=== PATIENT | female | born 1930 | race Caucasian/White ===

== ENCOUNTER 2017-07-27 14:17 | Inpatient (IN) | payer MEDICARE, OTHER, MEDICAID ==
[2017-07-27] MEDS ORDERED: Sodium Chloride 0.9% 1,000 ML IV ONE ×2 (15:04→21:16)
[2017-07-27] MEDS ORDERED: Sodium Chloride 0.9% 250 ML IV ONE (15:04)
--- NOTE | 2017-07-27 15:50 | EDM.PDOC ---
ED HPI GENERAL MEDICAL PROBLEM - General Chief Complaint: Gastrointestinal Problem Stated Complaint: VOMITING AND NOT EATING OR DRINKING Time Seen by Provider: 07/27/17 14:50 Source of Information: Reports: Family, Group Home Records History Limitations: Reports: No Limitations - History of Present Illness INITIAL COMMENTS - FREE TEXT/NARRATIVE: 86-year-old female presents for evaluation and treatment of vomiting, weakness and lethargy. Patient is pleasantly confused and is unable to provide a reliable history. She currently denies any pain. Per halfway report she had 2 episodes of vomiting on 07-17, one episode of vomiting on 07-20 and 2 episodes of vomiting on 07-23. She was given Zofran around noon today. He also reports she has been more lethargic and weak. She has also not been eating drinking as much as normal. No fevers or diarrhea per halfway. Patient is a DNR. Patient is a resident of [facility]. Abdomen Pain Score (Numeric/FACES): 0 - Related Data Allergies Allergy/AdvReac Type Severity Reaction Status Date / Time shellfish derived Allergy Abdominal Verified 03/11/14 03:06 Cramps Home Meds: Home Meds Lisinopril 10 mg PO DAILY 03/06/14 [History] Simvastatin [Zocor] 20 mg PO DAILY 03/06/14 [History] Venlafaxine [Effexor XR] 112.5 mg PO DAILY 03/06/14 [History] metFORMIN [Glucophage] 1,000 mg PO DAILY 03/06/14 [History] Metoprolol Tartrate [Lopressor] 50 mg PO TID #90 tablet 03/11/14 [Rx] Acetaminophen [Tylenol] 650 mg PO BID 07/27/17 [History] Aspirin [Halfprin] 81 mg PO DAILY 07/27/17 [History] Insulin Glarg,Human.Rec.Analog [LantUS Solostar] 25 units SQ BEDTIME 07/27/17 [ History] QUEtiapine [SEROquel] 150 mg PO BID 07/27/17 [History] Sennosides/Docusate Sodium [Senna Plus Tablet] 2 tab PO DAILY 07/27/17 [History] Past Medical History Cardiovascular History: Reports: Hypertension, Pacemaker Gastrointestinal History: Reports: Chronic Constipation, GERD, Other (See Below) Other Gastrointestinal History: adult failure to thrive Musculoskeletal History: Reports: Osteoarthritis Psychiatric History: Reports: Depression Endocrine/Metabolic History: Reports: Diabetes, Type II - Past Surgical History GI Surgical History: Reports: Cholecystectomy Female Surgical History: Reports: Mastectomy Other Female Surgeries/Procedures: right Social & Family History - Tobacco Use Smoking Status *Q: Never Smoker - Caffeine Use Caffeine Use: Reports: None - Alcohol Use Days Per Week of Alcohol Use: 0 - Recreational Drug Use Recreational Drug Use: No ED ROS GENERAL - Review of Systems Review Of Systems: See Below Constitutional: Reports: Malaise, Weakness. Denies: Fever Cardiovascular: Denies: Chest Pain GI/Abdominal: Reports: Nausea, Vomiting. Denies: Abdominal Pain, Diarrhea ED EXAM, GI/ABD - Physical Exam Exam: See Below Exam Limited By: No Limitations General Appearance: Alert, WD/WN, No Apparent Distress, Obese Throat/Mouth: Normal Inspection, Normal Voice, No Airway Compromise Respiratory/Chest: No Respiratory Distress, Lungs Clear, Normal Breath Sounds Cardiovascular: Normal Peripheral Pulses, Regular Rate, Rhythm, No Murmur GI/Abdominal Exam: Normal Bowel Sounds, Soft, Non-Tender Neurological: Alert, Confused Psychiatric: Normal Affect, Normal Mood Skin Exam: Warm, Dry, Normal Color EKG INTERPRETATION EKG Date: 07/27/17 Time: 17:00 EKG Interpretation Comments: Paced rhythm at 63 bpm. No acute changes. Reviewed by myself and Dr. Su. Course - Vital Signs Last Recorded V/S: Last Vital Signs Temp 36.9 C 07/27/17 22:10 Pulse 71 07/27/17 22:10 Resp 19 07/27/17 22:10 BP 155/80 H 07/27/17 22:10 Pulse Ox 93 L 07/27/17 22:10 - Orders/Labs/Meds Orders: Active Orders 24 hr Category Date Time Status Cardiac Monitoring [RC] . DIRECTED Care 07/27/17 15:01 Active EKG Documentation Completion [RC] ASDIRECTED Care 07/27/17 15:02 Active Insert Gilliam Catheter [Insert Urinary Catheter] [OM.PC] Care 07/27/17 19:05 Ordered Stat Urinary Catheter Assessment [RC] ASDIRECTED Care 07/27/17 19:05 Active Chest 1V Frontal [CR] Stat Exams 07/27/17 15:01 Taken CULTURE BLOOD [BC] Stat Lab 07/27/17 19:33 Ordered CULTURE BLOOD [BC] Stat Lab 07/27/17 19:33 Ordered CULTURE URINE [RM] Stat Lab 07/27/17 19:05 Ordered Sodium Chloride 0.9% [Normal Saline] 1,000 ml Med 07/27/17 15:04 Active IV ONETIME Sodium Chloride 0.9% [Normal Saline] 1,000 ml Med 07/27/17 21:16 Active IV ONETIME Blood Culture x2 Reflex Set [OM.PC] Stat Oth 07/27/17 19:33 Ordered EKG 12 Lead [EK] Stat Ther 07/27/17 15:01 Ordered Medication Orders Acetaminophen (Tylenol) 650 mg PO Q6H PRN PRN Reason: Fever Sodium Chloride (Normal Saline) 1,000 mls @ 100 mls/hr IV ONETIME ONE Stop: 07/28/17 01:03 Last Admin: 07/27/17 19:37 Dose: 100 mls/hr Sodium Chloride (Normal Saline) 1,000 mls @ 100 mls/hr IV ONETIME ONE Stop: 07/28/17 07:15 Last Admin: 07/27/17 21:24 Dose: 100 mls/hr Sodium Chloride (Normal Saline) 1,000 mls @ 125 mls/hr IV ASDIRECTED [facility] Temazepam (Restoril) 7.5 mg PO BEDTIME PRN PRN Reason: Sleep Labs: Laboratory Tests 07/27/17 07/27/17 07/27/17 Range/Units 16:10 16:10 19:05 WBC 11.20 H (3.98-10.04) K/mm3 RBC 4.19 (3.98-5.22) M/mm3 Hgb 13.1 (11.2-15.7) gm/L Hct 40.6 (34.1-44.9) % MCV 96.9 H (79.4-94.8) fl MCH 31.3 (25.6-32.2) pg MCHC 32.3 (32.2-35.5) g/dl RDW Std Deviation 46.2 (36.4-46.3) fL Plt Count 266 (182-369) K/mm3 MPV 9.7 (9.4-12.3) fl Neutrophils % (Manual) 72 H (40-60) % Band Neutrophils % 0 (0-10) % Lymphocytes % (Manual) 16 L (20-40) % Atypical Lymphs % 0 % Monocytes % (Manual) 11 H (2-10) % Eosinophils % (Manual) 1 (0.7-5.8) % Basophils % (Manual) 0 L (0.1-1.2) Platelet Estimate Adequate Plt Morphology Comment Normal RBC Morph Comment Normal Sodium 136 (136-145) mEq/L Potassium 4.9 (3.5-5.1) mEq/L Chloride 101 (98-107) mEq/L Carbon Dioxide 26 (21-32) mEq/L Anion Gap 13.9 (5-15) BUN 54 H (7-18) mg/dL Creatinine 2.0 H (0.55-1.02) mg/dL Est Cr Clr Drug Dosing 15.52 mL/min Estimated GFR (MDRD) 24 (>60) mL/min BUN/Creatinine Ratio 27.0 H (14-18) Glucose 159 H (83-115) mg/dL Lactic Acid (0.4-2.0) mmol/L Calcium 9.2 (8.5-10.1) mg/dL Total Bilirubin 0.3 (0.2-1.0) mg/dL AST 13 L (15-37) U/L ALT 18 (14-59) U/L Alkaline Phosphatase 123 H (46-116) U/L Troponin I < 0.017 (0.00-0.056) ng/mL NT-Pro-B Natriuret Pep 1021 H (0-450) pg/mL Total Protein 6.4 (6.4-8.2) g/dl Albumin 2.8 L (3.4-5.0) g/dl Globulin 3.6 gm/dL Albumin/Globulin Ratio 0.8 L (1-2) Urine Color Yellow (Yellow) Urine Appearance Cloudy H (Clear) Urine pH 7.0 (5.0-8.0) Ur Specific [place] 1.025 (1.005-1.030) Urine Protein 2+ H (Negative) Urine Glucose (UA) Negative (Negative) Urine Ketones 1+ H (Negative) Urine Occult Blood Negative (Negative) Urine Nitrite Negative (Negative) Urine Bilirubin Negative (Negative) Urine Urobilinogen 1.0 (0.2-1.0) Ur Leukocyte Esterase 1+ H (Negative) Urine RBC 0-5 (0-5) /hpf Urine WBC 50-75 H (0-5) /hpf Ur Epithelial Cells 5-10 H (0-5) /hpf Urine Bacteria Many H (FEW) /hpf Urine Mucus Not seen (FEW) /hpf 07/27/17 Range/Units 20:25 WBC (3.98-10.04) K/mm3 RBC (3.98-5.22) M/mm3 Hgb (11.2-15.7) gm/L Hct (34.1-44.9) % MCV (79.4-94.8) fl MCH (25.6-32.2) pg MCHC (32.2-35.5) g/dl RDW Std Deviation (36.4-46.3) fL Plt Count (182-369) K/mm3 MPV (9.4-12.3) fl Neutrophils % (Manual) (40-60) % Band Neutrophils % (0-10) % Lymphocytes % (Manual) (20-40) % Atypical Lymphs % % Monocytes % (Manual) (2-10) % Eosinophils % (Manual) (0.7-5.8) % Basophils % (Manual) (0.1-1.2) Platelet Estimate Plt Morphology Comment RBC Morph Comment Sodium (136-145) mEq/L Potassium (3.5-5.1) mEq/L Chloride (98-107) mEq/L Carbon Dioxide (21-32) mEq/L Anion Gap (5-15) BUN (7-18) mg/dL Creatinine (0.55-1.02) mg/dL Est Cr Clr Drug Dosing mL/min Estimated GFR (MDRD) (>60) mL/min BUN/Creatinine Ratio (14-18) Glucose (83-115) mg/dL Lactic Acid 2.4 H (0.4-2.0) mmol/L Calcium (8.5-10.1) mg/dL Total Bilirubin (0.2-1.0) mg/dL AST (15-37) U/L ALT (14-59) U/L Alkaline Phosphatase (46-116) U/L Troponin I (0.00-0.056) ng/mL NT-Pro-B Natriuret Pep (0-450) pg/mL Total Protein (6.4-8.2) g/dl Albumin (3.4-5.0) g/dl Globulin gm/dL Albumin/Globulin Ratio (1-2) Urine Color (Yellow) Urine Appearance (Clear) Urine pH (5.0-8.0) Ur Specific [place] (1.005-1.030) Urine Protein (Negative) Urine Glucose (UA) (Negative) Urine Ketones (Negative) Urine Occult Blood (Negative) Urine Nitrite (Negative) Urine Bilirubin (Negative) Urine Urobilinogen (0.2-1.0) Ur Leukocyte Esterase (Negative) Urine RBC (0-5) /hpf Urine WBC (0-5) /hpf Ur Epithelial Cells (0-5) /hpf Urine Bacteria (FEW) /hpf Urine Mucus (FEW) /hpf Meds: Medications Generic Name Dose Route Start Last Admin Trade Name Freq PRN Reason Stop Dose Admin Acetaminophen 650 mg 07/28/17 00:03 Tylenol PO Q6H PRN Fever Sodium Chloride 1,000 mls @ 100 mls/hr 07/27/17 15:04 07/27/17 19:37 Normal Saline IV 07/28/17 01:03 100 mls/hr ONETIME ONE Administration Sodium Chloride 1,000 mls @ 100 mls/hr 07/27/17 21:16 07/27/17 21:24 Normal Saline IV 07/28/17 07:15 100 mls/hr ONETIME ONE Administration Sodium Chloride 1,000 mls @ 125 mls/hr 07/28/17 00:15 Normal Saline IV ASDIRECTED FATUMA Temazepam 7.5 mg 07/28/17 00:05 Restoril PO BEDTIME PRN Sleep Discontinued Medications Generic Name Dose Route Start Last Admin Trade Name Freq PRN Reason Stop Dose Admin Sodium Chloride 250 mls @ 250 mls/hr 07/27/17 15:04 07/27/17 19:26 Normal Saline IV 07/27/17 16:03 250 mls/hr ONETIME ONE Administration Ceftriaxone Sodium 1 gm/ 100 mls @ 200 mls/hr 07/27/17 19:33 07/27/17 19:37 Sodium Chloride IV 07/27/17 20:02 200 mls/hr ONETIME ONE Administration Sodium Chloride 500 mls @ 500 mls/hr 07/27/17 20:15 Normal Saline IV 07/27/17 21:14 ONETIME ONE Sodium Chloride 999 mls @ 999 mls/hr 07/27/17 20:16 07/27/17 20:20 Normal Saline IV 07/27/17 21:14 999 mls/hr ONETIME ONE Administration Ondansetron HCl 4 mg 07/27/17 19:31 07/27/17 19:37 Zofran IVPUSH 07/27/17 19:32 4 mg ONETIME ONE Administration - Radiology Interpretation Free Text/Narrative:: Chest: Portable view of the chest is obtained. Comparison: Prior chest x-ray of 03/06/14. Heart size and mediastinum are within normal limits for portable technique. Degenerative change is seen within both shoulders. Calcification off the inferior left shoulder is seen which is stable from prior exam possibly due to old injury. Pacemaker is noted. Lungs are clear. Impression: 1. Incidental findings. Nothing acute is appreciated on portable chest x-ray. Abdomen: Supine and decubitus views of the abdomen were obtained. Scattered gas within colon and small bowel is seen which appears within normal limits. Surgical clips are seen from prior cholecystectomy. Scoliosis and degenerative change is noted within the spine. Vascular calcification is seen. No free air is seen. Impression: 1. Incidental findings. - Re-Assessments/Exams Free Text/Narrative Re-Assessment/Exam: 07/28/17 00:08 Influenza is negative. Unfortunately, given multiple traumas in the ER tonight the patient's IV was occluded when she bent her arm frequently. She received only about 30 mls initially. When she went over to x-ray to have her flat and upright done she pulled out her IV. Nursing staff was unable to get IV access in her right foot. 1 L was then bolused and She was also given Rocephin. Patient has blood and urine cultures pending. The field the patient should be admitted for urinary tract infection with her worsening weakness, vomiting and lethargy. I spoke with the patient's son Luciano at [phone]. He also feels that she should be admitted and agrees to the admission. I spoke with hospice on-call, Dr. Lawson, she agrees to the admission. [facility] be [facility] Departure - Departure Time of Disposition: 00:12 Disposition: Refer to Observation Condition: Poor Clinical Impression: Vomiting, Urinary tract infection - Discharge Information - My Orders Last 24 Hours: My Active Orders 07/27/17 15:01 Cardiac Monitoring [RC] . DIRECTED Chest 1V Frontal [CR] Stat EKG 12 Lead [EK] Stat 07/27/17 15:02 EKG Documentation Completion [RC] ASDIRECTED 07/27/17 15:04 Sodium Chloride 0.9% [Normal Saline] 1,000 ml IV ONETIME 07/27/17 19:05 Insert Gilliam Catheter [Insert Urinary Catheter] [OM.PC] Stat Urinary Catheter Assessment [RC] ASDIRECTED CULTURE URINE [RM] Stat 07/27/17 19:33 CULTURE BLOOD [BC] Stat CULTURE BLOOD [BC] Stat Blood Culture x2 Reflex Set [OM.PC] Stat 07/27/17 21:16 Sodium Chloride 0.9% [Normal Saline] 1,000 ml IV ONETIME - Assessment/Plan Last 24 Hours: My Active Orders 07/27/17 15:01 Cardiac Monitoring [RC] . DIRECTED Chest 1V Frontal [CR] Stat EKG 12 Lead [EK] Stat 07/27/17 15:02 EKG Documentation Completion [RC] ASDIRECTED 07/27/17 15:04 Sodium Chloride 0.9% [Normal Saline] 1,000 ml IV ONETIME 07/27/17 19:05 Insert Gilliam Catheter [Insert Urinary Catheter] [OM.PC] Stat Urinary Catheter Assessment [RC] ASDIRECTED CULTURE URINE [RM] Stat 07/27/17 19:33 CULTURE BLOOD [BC] Stat CULTURE BLOOD [BC] Stat Blood Culture x2 Reflex Set [OM.PC] Stat 07/27/17 21:16 Sodium Chloride 0.9% [Normal Saline] 1,000 ml IV ONETIME
--- NOTE | 2017-07-27 18:56 | CR ---
Abdomen: Supine and decubitus views of the abdomen were obtained. Scattered gas within colon and small bowel is seen which appears within normal limits. Surgical clips are seen from prior cholecystectomy. Scoliosis and degenerative change is noted within the spine. Vascular calcification is seen. No free air is seen. Impression: 1. Incidental findings. Diagnostic code #2
[2017-07-27] MEDS ORDERED: Ondansetron 4 MG/2 ML SDV IVPUSH ONE (19:31)
[2017-07-27] MEDS ORDERED: cefTRIAXone 1 GM in Sodium Chloride 0.9% 100 ML IV ONE (19:33)
[2017-07-27] MEDS ORDERED: Sodium Chloride 0.9% 500 ML IV ONE (20:15)
[2017-07-27] MEDS ORDERED: SODIUM CHLORIDE 0.9% IV ONE (20:16)
[2017-07-28] MEDS ORDERED: Acetaminophen 325 MG Tab PO PRN (00:03)
[2017-07-28] MEDS ORDERED: Temazepam 7.5 MG Cap PO PRN (00:05)
[2017-07-28] MEDS ORDERED: Ondansetron 4 MG/2 ML SDV IVPUSH PRN (00:09)
[2017-07-28] MEDS: Sodium Chloride 0.9% 1,000 ML IV SCH ×2 (07:44→17:21)
--- NOTE | 2017-07-28 08:06 | CR ---
Chest: Portable view of the chest is obtained. Comparison: Prior chest x-ray of 03/06/14. Heart size and mediastinum are within normal limits for portable technique. Degenerative change is seen within both shoulders. Calcification off the inferior left shoulder is seen which is stable from prior exam possibly due to old injury. Pacemaker is noted. Lungs are clear. Impression: 1. Incidental findings. Nothing acute is appreciated on portable chest x-ray. Diagnostic code #2
[2017-07-28] MEDS ORDERED: cefTRIAXone 2 GM in Sodium Chloride 0.9% 100 ML IV ONE (09:00)
[2017-07-28] MEDS ORDERED: cefTRIAXone 2 GM Vial IV ONE (09:00)
[2017-07-28] MEDS ORDERED: Magnesium Sulfate/Water 4 GM in Premix Bag 1 BAG IV ONE (09:39)
--- NOTE | 2017-07-28 09:41 | PCM.HP ---
H&P History of Present Illness - General Date of Service: 07/28/17 Admit Problem/Dx: Admission Diagnosis/Problem Admission Diagnosis/Problem Urinary tract infection Source of Information: Provider History Limitations: Reports: No Limitations - History of Present Illness Initial Comments - Free Text/Narative: 86 year old female, [facility] resident presented to the ED with generalized weakness and N/V. The patient has also been more lethargic over the last 24-48 hours. The generalized weakness was noticed by her son who brought her to the ED for evaluation. Apparently her symptoms have been happening over several days, the first day the patient vomited was 07/17/17. Oral intake decreased as well over the last 24 hours. She denies fever or chills. A UTI has been documented on labs, at this time, she will be OBS with telemetry. If needed, admission status will be adjusted to a full admission with tele. Onset of Symptoms: Reports: Gradual Duration of Symptoms: Reports: Day(s):, Getting Worse Location: Reports: Abdomen, Generalized Severity: Moderate Improves with: Reports: Medication Worsens with: Reports: None Associated Symptoms: Reports: Loss of Appetite, Malaise, Nausea/Vomiting, Weakness Abdomen Pain Score (Numeric/FACES): 0 - Related Data Allergies/Adverse Reactions: Allergies Allergy/AdvReac Type Severity Reaction Status Date / Time shellfish derived Allergy Abdominal Verified 07/28/17 04:28 Cramps Home Medications: Home Meds Lisinopril 10 mg PO DAILY 03/06/14 [History] Simvastatin [Zocor] 20 mg PO DAILY 03/06/14 [History] Venlafaxine [Effexor XR] 112.5 mg PO DAILY 03/06/14 [History] metFORMIN [Glucophage] 1,000 mg PO DAILY 03/06/14 [History] Metoprolol Tartrate [Lopressor] 50 mg PO TID #90 tablet 03/11/14 [Rx] Acetaminophen [Tylenol] 650 mg PO BID 07/27/17 [History] Aspirin [Halfprin] 81 mg PO DAILY 07/27/17 [History] Insulin Glarg,Human.Rec.Analog [LantUS Solostar] 25 units SQ BEDTIME 07/27/17 [ History] QUEtiapine [SEROquel] 150 mg PO BID 07/27/17 [History] Sennosides/Docusate Sodium [Senna Plus Tablet] 2 tab PO DAILY 07/27/17 [History] Past Medical History Cardiovascular History: Reports: Hypertension, Pacemaker Respiratory History: Reports: None Gastrointestinal History: Reports: Chronic Constipation, GERD, Other (See Below) Other Gastrointestinal History: adult failure to thrive Genitourinary History: Reports: None Musculoskeletal History: Reports: Osteoarthritis Psychiatric History: Reports: Depression Endocrine/Metabolic History: Reports: Diabetes, Type II - Infectious Disease History Infectious Disease History: Reports: Other (See Below) Other Infectious Disease History: pt unable to answer and the paperwork does not have this listed in the history from the detention. - Past Surgical History GI Surgical History: Reports: Cholecystectomy Female Surgical History: Reports: Mastectomy Other Female Surgeries/Procedures: right Social & Family History - Family History Family Medical History: Noncontributory - Tobacco Use Smoking Status *Q: Never Smoker - Caffeine Use Caffeine Use: Reports: None - Alcohol Use Days Per Week of Alcohol Use: 0 - Recreational Drug Use Recreational Drug Use: No H&P Review of Systems - Review of Systems: Review Of Systems: See Below General: Reports: Malaise, Weakness, Decreased Appetite HEENT: Reports: No Symptoms Pulmonary: Reports: No Symptoms Cardiovascular: Reports: No Symptoms Gastrointestinal: Reports: Decreased Appetite Genitourinary: Reports: No Symptoms Musculoskeletal: Reports: No Symptoms Skin: Reports: No Symptoms Psychiatric: Reports: No Symptoms Neurological: Reports: No Symptoms Hematologic/Lymphatic: Reports: No Symptoms Immunologic: Reports: No Symptoms Exam - Exam Exam: See Below - Vital Signs Vital Signs: Last Vital Signs Temp 35.8 C 07/28/17 08:48 Pulse 72 07/28/17 08:48 Resp 14 07/28/17 08:48 BP 159/102 H 07/28/17 08:48 Pulse Ox 99 07/28/17 08:48 Weight: 75.886 kg - Exam Quality Assessment: DVT Prophylaxis General: Alert, Oriented, Cooperative HEENT: Conjunctiva Clear, EOMI, Pupils Equal, Pupils Reactive, PERRLA Neck: Supple, Trachea Midline Lungs: Normal Respiratory Effort Cardiovascular: Regular Rate, Regular Rhythm GI/Abdominal Exam: Normal Bowel Sounds, Soft, Non-Tender, No Organomegaly, No Distention (Female) Exam: Deferred Rectal (Female) Exam: Deferred Back Exam: Normal Inspection Extremities: Normal Inspection, Normal Range of Motion Skin: Warm Neurological: Cranial Nerves Intact Neuro Extensive - Mental Status: Alert, Normal Mood/Affect, Normal Cognition, Memory Intact Neuro Extensive - Motor, Sensory, Reflexes: CN II-XII Intact Psychiatric: Alert, Normal Affect, Normal Mood - Patient Data Lab Results Last 24 hrs: Laboratory Results - last 24 hr 07/27/17 07/28/17 07/28/17 Range/Units 23:40 06:09 06:10 WBC (3.98-10.04) K/mm3 RBC (3.98-5.22) M/mm3 Hgb (11.2-15.7) gm/L Hct (34.1-44.9) % MCV (79.4-94.8) fl MCH (25.6-32.2) pg MCHC (32.2-35.5) g/dl RDW Std Deviation (36.4-46.3) fL Plt Count (182-369) K/mm3 MPV (9.4-12.3) fl Neut % (Auto) (34.0-71.1) % Lymph % (Auto) (19.3-51.7) % [place] % (Auto) (4.7-12.5) % Eos % (Auto) (0.7-5.8) Baso % (Auto) (0.1-1.2) % Neut # (Auto) (1.56-6.13) K/mm3 Lymph # (Auto) (1.18-3.74) K/mm3 [place] # (Auto) (0.24-0.36) K/mm3 Eos # (Auto) (0.04-0.36) K/mm3 Baso # (Auto) (0.01-0.08) K/mm3 Manual Slide Review Sodium 142 (136-145) mEq/L Potassium 4.4 (3.5-5.1) mEq/L Chloride 107 (98-107) mEq/L Carbon Dioxide 25 (21-32) mEq/L Anion Gap 14.4 (5-15) BUN 44 H (7-18) mg/dL Creatinine 1.4 H (0.55-1.02) mg/dL Est Cr Clr Drug Dosing 24.30 mL/min Estimated GFR (MDRD) 36 (>60) mL/min BUN/Creatinine Ratio 31.4 H (14-18) Glucose 93 (83-115) mg/dL POC Glucose 105 (83-110) mg/dL Calcium 8.6 (8.5-10.1) mg/dL Magnesium 1.4 L (1.8-2.4) mg/dl C-Reactive Protein 2.5 H* (<1.0) mg/dL MRSA (PCR) Negative 07/28/17 Range/Units 06:10 WBC 10.70 H (3.98-10.04) K/mm3 RBC 4.04 (3.98-5.22) M/mm3 Hgb 12.7 (11.2-15.7) gm/L Hct 39.0 (34.1-44.9) % MCV 96.5 H (79.4-94.8) fl MCH 31.4 (25.6-32.2) pg MCHC 32.6 (32.2-35.5) g/dl RDW Std Deviation 45.3 (36.4-46.3) fL Plt Count 237 (182-369) K/mm3 MPV 9.8 (9.4-12.3) fl Neut % (Auto) 68.0 (34.0-71.1) % Lymph % (Auto) 17.2 L (19.3-51.7) % [place] % (Auto) 12.1 (4.7-12.5) % Eos % (Auto) 1.4 (0.7-5.8) Baso % (Auto) 0.3 (0.1-1.2) % Neut # (Auto) 7.27 H (1.56-6.13) K/mm3 Lymph # (Auto) 1.84 (1.18-3.74) K/mm3 [place] # (Auto) 1.30 H (0.24-0.36) K/mm3 Eos # (Auto) 0.15 (0.04-0.36) K/mm3 Baso # (Auto) 0.03 (0.01-0.08) K/mm3 Manual Slide Review Normal smear Sodium (136-145) mEq/L Potassium (3.5-5.1) mEq/L Chloride (98-107) mEq/L Carbon Dioxide (21-32) mEq/L Anion Gap (5-15) BUN (7-18) mg/dL Creatinine (0.55-1.02) mg/dL Est Cr Clr Drug Dosing mL/min Estimated GFR (MDRD) (>60) mL/min BUN/Creatinine Ratio (14-18) Glucose (83-115) mg/dL POC Glucose (83-110) mg/dL Calcium (8.5-10.1) mg/dL Magnesium (1.8-2.4) mg/dl C-Reactive Protein (<1.0) mg/dL MRSA (PCR) Result Diagrams: 07/28/17 06:10 07/28/17 06:10 *Q Meaningful Use (ADM) - VTE *Q VTE Criteria *Q: - Stroke *Q Stroke Criteria *Q: - AMI *Q AMI Criteria *Q: - Problem List (1) Hyperlipidemia SNOMED Code(s): 95955166 ICD Code: E78.5 - HYPERLIPIDEMIA, UNSPECIFIED Status: Acute Current Visit : Yes (2) Urinary tract infection SNOMED Code(s): 92787908 ICD Code: N39.0 - URINARY TRACT INFECTION, SITE NOT SPECIFIED Status: Acute Current Visit: Yes (3) Vomiting SNOMED Code(s): 663237436 ICD Code: R11.10 - VOMITING, UNSPECIFIED Status: Acute Current Visit: Yes (4) Dementia SNOMED Code(s): 25286850 ICD Code: F03.90 - UNSPECIFIED DEMENTIA WITHOUT BEHAVIORAL DISTURBANCE Status: Acute Current Visit: No (5) Diabetes mellitus SNOMED Code(s): 88748065 ICD Code: E11.9 - TYPE 2 DIABETES MELLITUS WITHOUT COMPLICATIONS Status: Acute Current Visit: No (6) Failure to thrive SNOMED Code(s): 32875147 ICD Code: QQX5237 - Status: Acute Current Visit: No Problem List Initiated/Reviewed/Updated: Yes Orders Last 24hrs: Active Orders 24 hr Category Date Time Status Admission Status [Patient Status] [ADT] Routine ADT 07/28/17 02:37 Active Antiembolic Devices [RC] QSHIFT Care 07/28/17 00:07 Active Blood Glucose Check, Bedside [RC] QIDACANDBED Care 07/28/17 07:00 Active Clear Liquid Diet [DIET] Diet 07/28/17 Breakfast Active Acetaminophen [Tylenol] Med 07/28/17 00:03 Active 650 mg PO Q6H PRN Magnesium Sulfate/Water [Magnesium Sulfate 4 GM in Med 07/28/17 09:39 Ordered Water 100 ML] 4 gm Premix Bag 1 bag IV ONETIME Ondansetron [Zofran] Med 07/28/17 00:09 Active 4 mg IVPUSH Q8H PRN Sodium Chloride 0.9% [Normal Saline] 1,000 ml Med 07/28/17 00:15 Active IV ASDIRECTED Temazepam [Restoril] Med 07/28/17 00:05 Active 7.5 mg PO BEDTIME PRN KRISTEL Hose [Antiembolic Hose] [OM.PC] Routine Oth 07/28/17 00:07 Ordered Code Status [Resuscitation Status] Routine Resus Stat 07/28/17 03:39 Ordered Medication Orders Acetaminophen (Tylenol) 650 mg PO Q6H PRN PRN Reason: Fever Sodium Chloride (Normal Saline) 1,000 mls @ 125 mls/hr IV ASDIRECTED FATUMA Last Admin: 07/28/17 07:44 Dose: 125 mls/hr Magnesium Sulfate 4 gm/ Premix 100 mls @ 50 mls/hr IV ONETIME ONE Stop: 07/28/17 11:38 Ondansetron HCl (Zofran) 4 mg IVPUSH Q8H PRN PRN Reason: Nausea Temazepam (Restoril) 7.5 mg PO BEDTIME PRN PRN Reason: Sleep Assessment/Plan Comment:: Impression: AUTI AMS with baseline dementia ARF HTN DM type II HLD Plan: IVF IV ATB Home meds Daily labs Advance diet as tolerated DVT/GI prophylaxis SW/PT/OT
[2017-07-28] MEDS ORDERED: cefTRIAXone 2 GM in Sodium Chloride 0.9% 100 ML IV SCH (11:30)
[2017-07-28] MEDS: Venlafaxine 37.5 MG Cap.ER PO SCH (12:05)
[2017-07-28] MEDS: Metoprolol Tartrate 50 MG Tab PO SCH ×2 (14:53→21:48)
[2017-07-28] MEDS ORDERED: 50% Dextrose in Water 50 ML Syringe IVPUSH PRN (19:47)
[2017-07-28] MEDS: QUEtiapine 100 MG Tab PO SCH (21:49)
[2017-07-28] MEDS: Insulin Detemir 100 Units/ML 3 ML Pen SUBCUT SCH (21:53)
[2017-07-28] MEDS: Insulin Aspart 100 Units/ML 3 ML Pen SUBCUT SCH (21:55)
[2017-07-29] MEDS ORDERED: Furosemide 40 MG/4 ML VIAL IVPUSH ONE (05:00)
[2017-07-29] MEDS: Insulin Aspart 100 Units/ML 3 ML Pen SUBCUT SCH ×4 (07:07→22:13)
[2017-07-29] MEDS ORDERED: Magnesium Hydroxide 400 MG/5 ML Susp 30 ML Cup PO ONE (07:24)
[2017-07-29] MEDS ORDERED: cefTRIAXone 2 GM in Sodium Chloride 0.9% 100 ML IV SCH (08:00)
[2017-07-29] MEDS: Enoxaparin 30 MG/0.3 ML Syringe SUBCUT SCH (08:46)
[2017-07-29] MEDS: Aspirin 81 MG Tab.EC PO SCH (08:47)
[2017-07-29] MEDS: QUEtiapine 100 MG Tab PO SCH ×2 (08:47→21:09)
[2017-07-29] MEDS: Venlafaxine 37.5 MG Cap.ER PO SCH (08:48)
[2017-07-29] MEDS: metFORMIN 500 MG Tab PO SCH (08:49)
[2017-07-29] MEDS: Simvastatin 20 MG Tab PO SCH (08:49)
[2017-07-29] MEDS: Metoprolol Tartrate 50 MG Tab PO SCH ×3 (08:55→21:12)
[2017-07-29] MEDS: Insulin Detemir 100 Units/ML 3 ML Pen SUBCUT SCH ×2 (09:07→22:10)
[2017-07-29] MEDS: Cephalexin 500 MG Cap PO SCH ×2 (15:38→21:09)
[2017-07-29] MEDS ORDERED: Bisacodyl 10 MG Supp RECTAL PRN (15:50)
[2017-07-30] MEDS: Cephalexin 500 MG Cap PO SCH ×2 (03:23→09:55)
[2017-07-30] MEDS: Insulin Aspart 100 Units/ML 3 ML Pen SUBCUT SCH ×2 (06:31→12:15)
--- NOTE | 2017-07-30 08:57 | PCM.DCSUM1 ---
Discharge Summary - Hospital Course Free Text/Narrative:: 86-year-old female presents to ED for evaluation and treatment of vomiting, weakness and lethargy. Patient is pleasantly confused and is unable to provide a reliable history. She currently denies any pain. Per penitentiary report she had 2 episodes of vomiting on 07-17, one episode of vomiting on 07-20 and 2 episodes of vomiting on 07-23. She was given Zofran around noon today. He also reports she has been more lethargic and weak. She has also not been eating drinking as much as normal. No fevers or diarrhea per penitentiary. Patient is a DNR. Patient is a resident of [facility]. PCP is Dr. Cruz. ED evaluation reveals acute UTI, UC ordered as well as BC. Labs with negative troponin, normal WBC, essentially normal electrolytes, renal function with creatinine of 2.0, BNP slightly elevated at 3380, flu screen is negative. CXR and abdominal xray unremarkable for acute findings. Hospitalist service is consulted for admission for AUTI and AMS in patient with baseline dementia. Course of hospital stay: UC was positive for proteus maribilus, she rec'd Rocephin IV then was switched to PO Keflex once C&S returned. She was hydrated. Blood sugars were elevated, A1C is 6.3. She did have hypoglycemia during her stay, long acting insulin is decreased on discharge. Cholesterol excellent with total of 109, trig 143, LDL 37 and HLD 48. Creatinine improved to 1.4 at time of discharge. She is doing much better, mental status improved and thought to be at baseline. She will be discharged back to [place] today with PO Keflex x 7 days and follow up with PCP within one week of discharge. - Discharge Data Discharge Date: 07/30/17 (admit date 07/29/17) Discharge Disposition: DC/Tfer to [facility] 03 Condition: Good - Discharge Diagnosis/Problem(s) (1) Urinary tract infection SNOMED Code(s): 70941654 ICD Code: N39.0 - URINARY TRACT INFECTION, SITE NOT SPECIFIED Status: Acute Priority: High Current Visit: Yes Qualifiers: Urinary tract infection type: acute cystitis Hematuria presence: without hematuria Qualified Code(s): N30.00 - Acute cystitis without hematuria (2) Vomiting SNOMED Code(s): 568738062 ICD Code: R11.10 - VOMITING, UNSPECIFIED Status: Resolved Priority: High Current Visit: Yes (3) Diabetes mellitus SNOMED Code(s): 81447802 ICD Code: E11.9 - TYPE 2 DIABETES MELLITUS WITHOUT COMPLICATIONS Status: Chronic Priority: Medium Current Visit: Yes (4) Dementia SNOMED Code(s): 95792223 ICD Code: F03.90 - UNSPECIFIED DEMENTIA WITHOUT BEHAVIORAL DISTURBANCE Status: Chronic Priority: Medium Current Visit: Yes (5) Failure to thrive SNOMED Code(s): 29121922 ICD Code: GDY8060 - Status: Chronic Priority: Medium Current Visit: Yes (6) CKD (chronic kidney disease) stage 3, GFR 30-59 ml/min SNOMED Code(s): 660390130 ICD Code: N18.3 - CHRONIC KIDNEY DISEASE, STAGE 3 (MODERATE) Status: Chronic Priority: Medium Current Visit: Yes - Patient Summary/Data Operative Procedure(s) Performed: None Complications: None Consults: None Labs Pending at D/C: None Recommended Follow-up Testing/Procedures: Follow up with PCP within one week of discharge. Planned Operative Procedure(s) after DC: None Hospital Course: As above - Patient Instructions Diet: Heart Healthy Diet, Low Sodium, Drink 8-10+ Glasses/Day, Diabetic Diet, Mechanical Soft Activity: As Tolerated Driving: Do Not Drive Showering/Bathing: May Shower Notify Provider of: Fever, Increased Pain, Nausea and/or Vomiting - Discharge Plan Prescriptions/Med Rec: Bisacodyl [Dulcolax] 10 mg RECTAL DAILY PRN #10 supp PRN Reason: Constipation Cephalexin [IJD: Cephalexin] 500 mg PO Q6H #28 capsule Insulin Glarg,Human.Rec.Analog [LantUS Solostar] 20 units SQ BEDTIME #1 pen Home Medications: Home Meds Lisinopril 10 mg PO DAILY 03/06/14 [History] Simvastatin [Zocor] 20 mg PO DAILY 03/06/14 [History] Venlafaxine [Effexor XR] 112.5 mg PO DAILY 03/06/14 [History] metFORMIN [Glucophage] 1,000 mg PO DAILY 03/06/14 [History] Metoprolol Tartrate [Lopressor] 50 mg PO TID #90 tablet 03/11/14 [Rx] Acetaminophen [Tylenol] 650 mg PO BID 07/27/17 [History] Aspirin [Halfprin] 81 mg PO DAILY 07/27/17 [History] QUEtiapine [SEROquel] 150 mg PO BID 07/27/17 [History] Sennosides/Docusate Sodium [Senna Plus Tablet] 2 tab PO DAILY 07/27/17 [History] Bisacodyl [Dulcolax] 10 mg RECTAL DAILY PRN #10 supp 07/30/17 [Rx] Cephalexin [IJD: Cephalexin] 500 mg PO Q6H #28 capsule 07/30/17 [Rx] Insulin Glarg,Human.Rec.Analog [LantUS Solostar] 20 units SQ BEDTIME #1 pen 12/11 [Rx] Patient Handouts: Type 2 Diabetes Mellitus, Adult, Urinary Tract Infection, Adult, [id number], Chronic Kidney Disease, [id number], Aspirin, ASA oral tablets Referrals: Jeromy Cruz Jr, MD [Primary Care Provider] - - Discharge Summary/Plan Comment DC Time >30 min.: Yes (40 min) - General Info Date of Service: 07/30/17 Admission Dx/Problem (Free Text: Admission Diagnosis/Problem Admission Diagnosis/Problem Urinary tract infection Mary is seen today; pleasant and smiles at me. When asked if pain shakes her head no; otherwise is nonverbal but will shake her head appropriately to yes /no questions. She is voiding, incontinent. Eating. No further vomiting. Plans to DC back to SNF today. Functional Status: Reports: Pain Controlled, Tolerating Diet, Urinating ( incontinent) - Review of Systems General: Reports: Weakness (generalized). Denies: Fever HEENT: Reports: No Symptoms Pulmonary: Reports: No Symptoms. Denies: Shortness of Breath, Cough Cardiovascular: Reports: No Symptoms. Denies: Chest Pain, Palpitations Gastrointestinal: Reports: No Symptoms. Denies: Abdominal Pain, Nausea Musculoskeletal: Reports: No Symptoms Neurological: Reports: Confusion (baseline dementia) - Patient Data Vitals - Most Recent: Last Vital Signs Temp 99.5 F 07/30/17 02:59 Pulse 61 07/30/17 02:59 Resp 16 07/30/17 02:59 BP 125/67 07/30/17 02:59 Pulse Ox 97 07/30/17 02:59 Weight - Most Recent: 170 lb 11.2 oz I&O - Last 24 hours: Intake & Output 07/29/17 07/30/17 07/30/17 22:59 06:59 14:59 Intake Total 440 250 Balance 440 250 Lab Results - Last 24 hrs: Laboratory Results - last 24 hr 07/29/17 07/29/17 07/29/17 Range/Units 10:55 16:53 20:54 POC Glucose 141 H 97 51 L (83-110) mg/dL 07/29/17 07/30/17 07/30/17 Range/Units 22:04 06:17 07:12 POC Glucose 107 49 L 213 H (83-110) mg/dL Med Orders - Current: Current Medications Acetaminophen (Tylenol) 650 mg PO Q6H PRN PRN Reason: Fever Acetaminophen (Tylenol) 650 mg PO BID [facility] Aspirin (Halfprin) 81 mg PO DAILY [facility] Last Admin: 07/29/17 08:47 Dose: 81 mg Bisacodyl (Dulcolax) 10 mg RECTAL DAILY PRN PRN Reason: Constipation Last Admin: 07/29/17 16:54 Dose: 10 mg Cephalexin (Keflex) 500 mg PO Q6H [facility] Last Admin: 07/30/17 03:23 Dose: 500 mg Dextrose/Water (Dextrose 50% In Water) 50 ml IVPUSH ASDIRECTED PRN PRN Reason: Hypoglycemia Last Admin: 07/30/17 06:32 Dose: 50 ml Enoxaparin Sodium (Lovenox) 30 mg SUBCUT DAILY [facility] Last Admin: 07/29/17 08:46 Dose: 30 mg Insulin Aspart (Novolog) 0 unit SUBCUT QIDACANDBED [facility] PRN Reason: Protocol Last Admin: 07/30/17 06:31 Dose: Not Given Insulin Detemir (Levemir) 12.5 unit SUBCUT BID [facility] Last Admin: 07/29/17 22:10 Dose: 12.5 units Lisinopril (Prinivil) 10 mg PO DAILY [facility] Metformin HCl (Glucophage) 1,000 mg PO DAILY@0800 [facility] Last Admin: 07/29/17 08:49 Dose: 1,000 mg Metoprolol Tartrate (Lopressor) 50 mg PO TID [facility] Last Admin: 07/29/17 21:12 Dose: 50 mg Ondansetron HCl (Zofran) 4 mg IVPUSH Q8H PRN PRN Reason: Nausea Quetiapine Fumarate (Seroquel) 150 mg PO BID [facility] Last Admin: 07/29/17 21:09 Dose: 150 mg Senna/Docusate Sodium (Senna Plus) 2 tab PO DAILY [facility] Last Admin: 07/29/17 08:47 Dose: 2 tab Simvastatin (Zocor) 20 mg PO DAILY [facility] Last Admin: 07/29/17 08:49 Dose: 20 mg Temazepam (Restoril) 7.5 mg PO BEDTIME PRN PRN Reason: Sleep Venlafaxine HCl (Effexor Xr) 112.5 mg PO DAILY [facility] Last Admin: 07/29/17 08:48 Dose: 112.5 mg Discontinued Medications Furosemide (Lasix) 20 mg IVPUSH NOW ONE Stop: 07/29/17 05:01 Last Admin: 07/29/17 04:49 Dose: 20 mg Sodium Chloride (Normal Saline) 250 mls @ 250 mls/hr IV ONETIME ONE Stop: 07/27/17 16:03 Last Admin: 07/27/17 19:26 Dose: 250 mls/hr Sodium Chloride (Normal Saline) 1,000 mls @ 100 mls/hr IV ONETIME ONE Stop: 07/28/17 01:03 Last Admin: 07/27/17 19:37 Dose: 100 mls/hr Ceftriaxone Sodium 1 gm/ (Sodium Chloride) 100 mls @ 200 mls/hr IV ONETIME ONE Stop: 07/27/17 20:02 Last Admin: 07/27/17 19:37 Dose: 200 mls/hr Sodium Chloride (Normal Saline) 500 mls @ 500 mls/hr IV ONETIME ONE Stop: 07/27/17 21:14 Last Admin: 07/28/17 03:44 Dose: Not Given Sodium Chloride (Normal Saline) 999 mls @ 999 mls/hr IV ONETIME ONE Stop: 07/27/17 21:14 Last Admin: 07/27/17 20:20 Dose: 999 mls/hr Sodium Chloride (Normal Saline) 1,000 mls @ 100 mls/hr IV ONETIME ONE Stop: 07/28/17 07:15 Last Admin: 07/27/17 21:24 Dose: 100 mls/hr Sodium Chloride (Normal Saline) 1,000 mls @ 125 mls/hr IV ASDIRECTED [facility] Stop: 07/28/17 21:00 Last Admin: 07/28/17 17:21 Dose: 125 mls/hr Ceftriaxone Sodium 2 gm/ (Sodium Chloride) 100 mls @ 200 mls/hr IV ONETIME ONE Stop: 07/28/17 09:29 Last Admin: 07/28/17 08:47 Dose: 200 mls/hr Magnesium Sulfate 4 gm/ Premix 100 mls @ 50 mls/hr IV ONETIME ONE Stop: 07/28/17 11:38 Last Admin: 07/28/17 11:12 Dose: 50 mls/hr Ceftriaxone Sodium 2 gm/ (Sodium Chloride) 100 mls @ 200 mls/hr IV Q24H [facility] Last Admin: 07/28/17 12:01 Dose: Not Given Ceftriaxone Sodium 2 gm/ (Sodium Chloride) 100 mls @ 200 mls/hr IV Q24H [facility] Last Admin: 07/29/17 08:46 Dose: 200 mls/hr Magnesium Hydroxide (Milk Of Magnesia) 30 ml PO ONETIME ONE Stop: 07/29/17 07:25 Last Admin: 07/29/17 07:29 Dose: 30 ml Ondansetron HCl (Zofran) 4 mg IVPUSH ONETIME ONE Stop: 07/27/17 19:32 Last Admin: 07/27/17 19:37 Dose: 4 mg - Exam Quality Assessment: Reports: DVT Prophylaxis General: Reports: Alert, Cooperative, No Acute Distress HEENT: Reports: Pupils Equal, EOMI, Mucous Membr. Moist/[place] Neck: Reports: Supple Lungs: Reports: Clear to Auscultation, Normal Respiratory Effort, Decreased Breath Sounds (bases) Cardiovascular: Reports: Regular Rate, Regular Rhythm GI/Abdominal Exam: Normal Bowel Sounds, Soft, Non-Tender, Other (round, obese) (Female) Exam: Deferred Rectal (Female) Exam: Deferred Extremities: No Pedal Edema, Normal Capillary Refill Neurological: Reports: No New Focal Deficit, Other (baseline dementia) Psy/Mental Status: Reports: Alert *Q Meaningful Use (DIS) - VTE *Q VTE Criteria *Q: - Stroke *Q Stroke Criteria *Q: - AMI *Q AMI Criteria *Q:
[2017-07-30] MEDS ORDERED: Acetaminophen 325 MG Tab PO SCH (09:00)
[2017-07-30] MEDS ORDERED: Lisinopril 10 MG Tab PO SCH (09:00)
[2017-07-30] MEDS ORDERED: Pneumococcal Polyvalent-23 Vaccine 0.5 ML SDV IM ONE (09:13)
[2017-07-30] MEDS: Simvastatin 20 MG Tab PO SCH (09:51)
[2017-07-30] MEDS: QUEtiapine 100 MG Tab PO SCH (09:52)
[2017-07-30] MEDS: Venlafaxine 37.5 MG Cap.ER PO SCH (09:52)
[2017-07-30] MEDS: Aspirin 81 MG Tab.EC PO SCH (09:54)
[2017-07-30] MEDS: Metoprolol Tartrate 50 MG Tab PO SCH (09:54)
[2017-07-30] MEDS: Enoxaparin 30 MG/0.3 ML Syringe SUBCUT SCH (09:55)
[2017-07-30] MEDS: Insulin Detemir 100 Units/ML 3 ML Pen SUBCUT SCH (09:56)
[2017-07-30] MEDS: metFORMIN 500 MG Tab PO SCH (10:25)
[2017-07-30 13:43] VITALS: BP 125/55
== END 2017-07-30 13:35 | DRG 690 ==
LOC: JD.ED 14:17 → INTOOBSV 21:41 → UNDOADMOB 21:41 → JD.MS 21:41 → OBSVTOIN 07-29 07:45
PROVIDERS: ADMIT Internal Medicine Cardiovascular Disease; ATTEND Internal Medicine Cardiovascular Disease
DX: N39.0 Urinary tract infection, site not specified (principal); N17.9 Acute kidney failure, unspecified; B96.4 Proteus (mirabilis) (morganii) as the cause of diseases classified elsewhere; R11.10 Vomiting, unspecified; I10 Essential (primary) hypertension; R41.82 Altered mental status, unspecified; R53.1 Weakness; E11.649 Type 2 diabetes mellitus with hypoglycemia without coma; E11.9 Type 2 diabetes mellitus without complications; I12.9 Hypertensive chronic kidney disease with stage 1 through stage 4 chronic kidney disease, or unspecified chronic kidney disease; E11.22 Type 2 diabetes mellitus with diabetic chronic kidney disease; E78.5 Hyperlipidemia, unspecified; N18.3 Chronic kidney disease, stage 3 (moderate); Z95.0 Presence of cardiac pacemaker; K21.9 Gastro-esophageal reflux disease without esophagitis; K59.09 Other constipation; R62.7 Adult failure to thrive; M19.90 Unspecified osteoarthritis, unspecified site; F03.90 Unspecified dementia, unspecified severity, without behavioral disturbance, psychotic disturbance, mood disturbance, and anxiety; F32.9 Major depressive disorder, single episode, unspecified; Z66 Do not resuscitate; Z91.013 Allergy to seafood; Z79.84 Long term (current) use of oral hypoglycemic drugs; Z79.82 Long term (current) use of aspirin; Z79.4 Long term (current) use of insulin; Z79.899 Other long term (current) drug therapy
CPT/HCPCS: 36415 ×3; 71010; 74020; 80048 ×2; 80053; 80061; 81001; 82962 ×5; 83036; 83605; 83735 ×2; 83880 ×2; 84484; 85025 ×3; 86140 ×2; 87040 ×2; 87086; 87641; 87804 ×2; 93005; 96361; 96365; 96375; 99285; A9270 ×5; J0696 ×2; J1815 ×2; J1940; J2405; J3475; J7030 ×2; J7040 ×6; P9612; 87088; 87186; J1650; J7060